=== PATIENT | female | born 1995 | race Caucasian/White ===

== ENCOUNTER 2020-06-01 15:45 | Emergency (ER) | payer OTHER, SELFPAY ==
[2020-06-01 15:56] VITALS: BP 118/71; PULSE 125; RESP 20; TEMP 36.4; O2SAT 100
[2020-06-01 17:01] LABS: Alanine Aminotransferase 13 U/L (4-35); Albumin Level 4.7 g/dL (3.5-5.1); Alkaline Phosphatase 45 U/L (38-126); Anion Gap 9 mmol/L (8-16); Aspartate Amino Transferase 20 U/L (14-36); Bilirubin,Total 0.6 mg/dL (0.2-1.3); Blood Urea Nitrogen 9 mg/dL (7-17); Calcium 9.3 mg/dL (8.4-10.2); Carbon Dioxide 26 mmol/L (22-30); Chloride 104 mmol/L (98-107); Estimated CRCL calculation 89 ml/min; Estimated Glomerular Filt Rate > 60; Glucose 89 mg/dL (65-105); Potassium 3.7 mmol/L (3.4-5.0); Sodium 139 mmol/L (137-145)
[2020-06-01] MEDS: SODIUM CHLORIDE 0.9% IV 1,000 ML 999 ML IV CONT (17:08)
[2020-06-01 17:21] VITALS: BP 119/69; PULSE 75; RESP 20; O2SAT 100
[2020-06-01 18:06] LABS: Basophils Absolute Auto 0.1 K/mm3 (0.0-0.1); Basophils Percent Auto 0.5 % (0.2-1.2); Eosinophils Absolute Auto 0.2 K/mm3 (0-0.3); Eosinophils Percent Auto 1.6 % (0-4.4); Hemoglobin 12.4 g/dL (12.0-15.0); Immature Granulocyte Absolute 0.03 K/mm3 (0.00-0.031); Immature Granulocyte Percent A 0.3 % (0-0.5); Lymphocytes Absolute Auto 1.49 K/mm3 (0.9-3.2); Lymphocytes Percent Auto 13.6 % (18.3-44.2); Mean Corpuscular HGB Conc 33.5 g/dl (32-36); Mean Corpuscular Hemoglobin 28.9 pg (26-34); Mean Corpuscular Volume 86.2 fl (80-100); Mean Platelet Volume 9.8 fl (7.4-10.4); Monocytes Absolute Auto 0.8 K/mm3 (0.1-0.6); Monocytes Percent Auto 7.5 % (2.6-8.5); Neutrophils Absolute Auto 8.4 K/mm3 (1.3-6.7); Neutrophils Percent Auto 76.5 % (45.5-73.1); Platelet Count Result 392 k/mm3 (150-375); Red Blood Count 4.29 M/mm3 (4.2-5.4); Red Cell Distribution Width 12.3 % (11.5-14.5)
--- NOTE | 2020-06-01 18:15 | ED.FEMALEGU ---
HPI - Female Genitourinary General Chief complaint: Vaginal Bleeding Stated complaint: vaginal bleeding Time Seen by Provider: 06/01/20 15:55 Source: patient, family and RN notes reviewed Mode of arrival: ambulatory Limitations: no limitations History of Present Illness HPI Narrative: Patient is 24 years old white female presents with vaginal bleeding started 1 month ago got worse today. Patient status post vaginal delivery 3 months ago. Patient denies any nausea, vomiting, diarrhea, constipation, abdominal pain. Related Data Home Medications Medication Instructions Recorded Confirmed levetiracetam PO 06/01/20 Allergies Allergy/AdvReac Type Severity Reaction Status Date / Time No Known Allergies Allergy Verified 06/01/20 16:04 Review of Systems Review of Systems: Narrative: CONSTITUTIONAL: Denies fever, chills, or sweats. EYES: Denies visual changes, redness, or discharge. ENT: Denies rhinorrhea, congestion, sore throat, or otalgia. CARDIOVASCULAR: Denies chest pain, palpitations, or edema. RESPIRATORY: Denies cough or dyspnea. GASTROINTESTINAL: Denies abdominal pain, nausea, vomiting, or diarrhea. GENITOURINARY: Denies dysuria or hematuria. SKIN: Denies rash or itching. MUSCULOSKELETAL: Denies back pain, joint pain, or myalgia. NEUROLOGIC: Denies headache, numbness, or weakness. PSYCHIATRIC: Denies anxiety or depression. PMFSH Social History Social History Gender identity (if verbalized by the patient): Female Exam Narrative: Exam Narrative: General appearance: Well-developed, well-nourished Skin: Normal color Head: Normocephalic, nontraumatic Eyes: Clear conjunctiva ENT: Oropharynx normal, ears normal, nose normal Neck: Supple, nontender Chest and respiratory: Airway patent, no respiratory distress, no accessory muscle use Heart: Regular rate/rhythm Abdomen: Soft, nontender, no organomegaly, quiet bowel sounds Vascular: Normal peripheral pulses, normal capillary refill. Musculoskeletal: Normal range of motion, nontender back Neurologic: Alert and oriented ?3, PUPPET MASTER is normal as tested, no gross motor deficit : External Female Exam: normal external appearance Speculum Exam - Vagina: vaginal bleeding (1.5 long Q-tip wERE enough to dry the whole vaginal pouch, n) Speculum Exam - Cervix: Cervical os open Bimanual exam- vagina & uterus: normal bimanual exam Bimanual Exam- Adnexa, other: normal adnexae Course Course Emergency Course: Stable Vital Signs Vital signs: Vital Signs Temperature 36.4 C 06/01/20 15:56 Pulse Rate 125 H 06/01/20 15:56 Respiratory Rate 20 06/01/20 15:56 Blood Pressure 118/71 06/01/20 15:56 Pulse Oximetry 100 06/01/20 15:56 Temperature 36.4 C 06/01/20 15:56 Pulse Rate 75 06/01/20 17:21 Respiratory Rate 20 06/01/20 17:21 Blood Pressure 119/69 06/01/20 17:21 Pulse Oximetry 100 06/01/20 17:21 MDM - Female Genitourinary MDM Narrative Medical decision making narrative: Vaginal breathing is status post vaginal delivery 3 months ago l. Miscarriage, dysfunctional uterine bleeding is my concern. Labs, orthostatic blood pressure ordered further plan to follow Differential Diagnosis Differential diagnosis: Likely other (, miscarriage, dysfunctional uterine bleeding) Lab Data Result diagrams: 06/01/20 16:43 06/01/20 16:43 Labs: Lab Results 06/01/20 06/01/20 Range/Units 16:43 16:43 WBC 11.0 H (4.5-10.0) K/mm3 RBC 4.29 (4.2-5.4) M/mm3 Hgb 12.4 (12.0-15.0) g/dL Hct 37.0 (37.0-47.0) % MCV 86.2 (80-100) fl MCH 28.9 (26-34) pg MCHC 33.5 (32-36) g/d
[2020-06-01 18:25] VITALS: BP 113/71; PULSE 71; RESP 23; O2SAT 100
[2020-06-01 18:27] VITALS: BP 109/69; BP 119/68; PULSE 74; PULSE 96
[2020-06-01 18:29] VITALS: BP 101/66; PULSE 91
== END 2020-06-01 18:50 | disposition home or self-care (01) ==
PROVIDERS: Emergency Provider Emergency Medicine; PCP Internal Medicine
DX: N93.8 Other specified abnormal uterine and vaginal bleeding (principal)
CPT/HCPCS: 36415; 80053; 81025; 85025; 96360; 99284; J7030

== ENCOUNTER 2024-05-25 00:33 | Day surgery (SDC) | payer OTHER, SELFPAY ==
--- NOTE | 2024-05-24 07:51 | P.HP_ITS ---
H&P: HPI History of Present Illness Date/Time: 05/24/24 07:51 Chief Complaint: 1st trimester missed A/B Narrative: 28-year-old female with incomplete AB admitted for suction D&C risks reviewed abnormal proved by imaging Review of Systems Review of Systems: CONSTITUTIONAL: Denies fever, chills, or sweats. EYES: Denies visual changes, redness, or discharge. ENT: Denies rhinorrhea, congestion, sore throat, or otalgia. CARDIOVASCULAR: Denies chest pain, palpitations, or edema. RESPIRATORY: Denies cough or dyspnea. GASTROINTESTINAL: Denies abdominal pain, nausea, vomiting, or diarrhea. GENITOURINARY: Denies dysuria or hematuria. SKIN: Denies rash or itching. MUSCULOSKELETAL: Denies back pain, joint pain, or myalgia. NEUROLOGIC: Denies headache, numbness, or weakness. PSYCHIATRIC: Denies anxiety or depression. [facility] Social History Social History Gender identity (if verbalized by the patient): Female Meds Home Medications and Allergies Home Medications ?Medication ?Instructions ?Recorded ?Confirmed ?Type levetiracetam 500 mg tablet PO 06/01/20 History Allergies Allergy/AdvReac Type Severity Reaction Status Date / Time No Known Allergies Allergy Verified 06/01/20 16:04 Exam Const: General: cooperative, healthy appearing and comfortable Nutritional Appearance: average body habitus Orientation/consciousness: oriented to person, oriented to place and oriented to time HENMT: Head: normal to inspection Resp: Effort & Inspection: normal respiratory effort Cardio: Rate: regular rate Rhythm: regular rhythm Heart sounds: S1 normal heart sound present and S2 normal heart sound present GI: Inspection: normal to inspection Auscultation: normal bowel sounds : External Female Exam: normal external appearance Speculum Exam - Vagina: normal appearance of the vagina and vaginal bleeding Speculum Exam - Cervix: normal appearance of the cervix Bimanual exam- vagina & uterus: enlarged Bimanual Exam- Adnexa, other: normal adnexae Assessment and Plan Assessment and plan (1) Incomplete : Code(s): O03.4 - Incomplete spontaneous without complication Status: Acute Plan Proceed with suction dilatation curettage
[2024-05-24 09:19] VITALS: BMI 23.4
--- NOTE | 2024-05-24 09:27 | PC.NURSE ---
Report to the Outpatient Waiting Room, entrance under the green pavilion located off [facility], at time __12:00pm on date __05/25/24 . Planned Procedure Time: _2:00pm .? Time changes happen often and if your time is changed the preop area will call you the afternoon before. - You and your visitor will be asked to self-screen and do not enter if you have any COVID symptoms. Please call surgeon if you need to reschedule. - A mask is optional within the hospital at this time. Patients may have clear liquids (water, carbonated beverages, clear teas, apple juice) until 3 hours prior to surgery with a maximum of 20 ounces. - No food from midnight until time of surgery and no smoking, or chewing tobacco (or any form of nicotine). No chewing gum, candy or mints. (11:00am) Take only the following medications with a SIP of water on the morning of surgery: ____Levetricetam DO NOT STOP ANY OF YOUR OTHER PRESCRIPTION MEDICATIONS PRIOR TO SURGERY EXCEPT THE FOLLOWING Hold all vitamins and supplements for 3 days per anesthesiologist. Medications to discontinue per physician None Date to take last dose___None Please no make-up, nail tajik, hairspray, perfume, deodorant, or body powder the day of surgery.? No jewelry (including any body piercings) or valuables the day of surgery, leave them at home.? Please take a shower or bath the night before, or the morning of, surgery with an antibacterial soap.? Wear comfortable, loose fitting clothing.? - Jewelry must be removed prior to entering the operating room.? Rings and piercings that are not removed may be cut off. - The hospital will not accept responsibility for valuables.? - Please leave all valuables, including medications, at home the day of surgery. If you are going home after surgery, a licensed wagon driver must drive you home.? - NO public transportation without another adult if you receive anesthesia. - We recommend that an adult stay with you for 24 hours following discharge. - We also recommend that you do not drive, make important decision, drink alcoholic beverages, or take any drugs that were not prescribed by your health care provider for at least 24 hours after your discharge time. Follow any additional instructions given to you from your surgeon. Telephone instructions given to __Patient and asked if any additional questions and then verbalized understanding. Patient advised to call surgeon office or pre surgery nurse liaison [phone] if any additional questions.
--- OUTSIDE RECORDS SUMMARY | 2024-05-25 00:35 | XMS_ITS | Clinical Summary ---
Author Organization [facility] Address [address] [place] [address] Care Team Providers Care Water Resource Manager Name Role Phone Ginny Pedro SANDWICH AND DRINK CART OPERATOR Primary Care Provider Mason labjoya Allergies No known active allergies Medications levETIRAcetam 500 MG tablet Take 500 mg by mouth 2 (two) times daily. 11 07/31/2018 Active vitamin 27-1 MG Tab tablet Take 1 tablet by mouth daily. Active Active Problems Problem Noted Date Diagnosed Date Vaginal delivery ([facility]) 02/27/2020 Personal history of seizure disorder 02/27/2020 Uses marijuana 02/27/2020 ([facility]) 02/26/2020 Immunizations Name Administration Dates Next Due Fluzone 6 Months+ Quad (0.5 mL Prefilled Syringe ) 02/28/2020 Tdap (Adacel) 02/28/2020 Family History Medical History Relation Comments Autism Brother 1 None Brother 2 None Father None Half-brother 1 None Half-brother 2 Asthma Mother COPD Mother Relation Status Comments Brother 1 Brother 2 Alive Father Alive Half-brother 1 Alive Half-brother 2 Alive Mother Alive Social History Tobacco Use Types Packs/Day Years Used Date Smoking Tobacco: Never Smokeless Tobacco: Never Alcohol Use Standard Drinks/Week Comments Not Currently 0 (1 standard drink = 0.6 oz pur e alcohol) Comments No Sex and Gender Information Value Date Recorded Sex Assigned at Not on file Legal Sex Female 7:34 PM CDT Gender Identity Not on file Sexual Orientation Not on file Last Filed Vital Signs Vital Sign Reading Time Taken Comments Blood Pressure 137/86 02/28/2020 8:00 AM SHIFT SUPERVISOR Pulse 90 02/28/2020 8:00 AM SHIFT SUPERVISOR Temperature 36.7 C (98 F) 02/28/2020 8:00 AM SHIFT SUPERVISOR Respiratory Rate 20 02/28/2020 8:00 AM SHIFT SUPERVISOR Oxygen Saturation 97% 02/28/2020 8:00 AM SHIFT SUPERVISOR Inhaled Oxygen Concentration - - Weight 78.5 kg (173 lb) 02/26/2020 11:29 PM SHIFT SUPERVISOR Height 163.8 cm (5' 4.5 ) 02/26/2020 11:29 PM CS T Body Mass Index 29.24 02/26/2020 11:29 PM SHIFT SUPERVISOR Plan of Treatment Health Maintenance Due Date Last Done Comments Cervical Cancer Screening Pap Smear (Age 21 to 29) Every 3 Years 1996 Cervical Cancer Screening 1996 Annual Physical 12/06/1999 Hepatitis C 2014 Hepatitis B Vaccines (1 of 3 - 19+ 3-dose series) 12/06/2015 COVID-19 Vaccine ( season) 2023 Influenza Adult (#1) 2023 02/28/2020, 01/07/2017, 01/16/2015, Additional history exists DTaP, Tdap and Td Vaccines (6 - Td or Tdap) 02/27/2030 02/28/2020, 12/19/2001, 03/29/2000, Additional history exists Meningococcal Vaccine Completed 12/17/2014 HPV Vaccines Aged Out No longer eligi ble based on patient's age to complete this topic Meningococcal B Vaccine Aged Out No l onger eligible based on patient's age to complete this topic Pneumococcal Vaccine: Pediatrics (0 to 5 Years) and At-Risk Patients (6 to 64 Years) Aged Out No longer eligible based on patient's age to complete this topic RSV Immunizations Under 20 Months Aged Out No longer eligible based on patient's age to complete this topic Insurance Advance Directives * Full Code (Latest Code Status on File) Date Activated Date Inactivated Comments 02/26/2020 11:44 PM 02/28/2020 3:51 PM Care Teams Water Resource Manager Relationship Specialty Start Date End Date Ginny Pedro, SANDWICH AND DRINK CART OPERATOR PCP - General NURSE PRACTITIONER 08/19/18
--- OUTSIDE RECORDS SUMMARY | 2024-05-25 00:36 | XMS_ITS | Clinical Summary ---
Author Organization [facility] Address [facility] [address] [place] [address] Care Team Providers Care Base Manager Name Role Phone Lorene Vergara DO Unavailable [phone] Krzysztof Garcia CUPOLA OPERATOR INSULATION Primary Care Provide r Allergies No known active allergies Medications escitalopram (LEXAPRO) 10 mg tablet TAKE ONE TABLET BY MOUTH ONCE DAILY FOR 14 DAYS THEN INCREASE TO TWO TABLETS DAILY. 1 Active BIOTIN ORAL Take by mouth Acti ve lamoTRIgine (LaMICtal) 25 mg tablet Take 1 tablet (25 mg total) by mouth 2 (two) times a day for 14 days, THEN 2 tablets (50 mg total) 2 (two) times a day. 388 tablet 4 Active lamoTRIgine (LaMICtal) 25 mg tablet Take 2 tablets (50 mg total) by mouth 2 (two) times a day 360 tablet 3 5 03/21/19 26 Active levETIRAcetam (KEPPRA) 500 mg tabletIndication s:Nonintractable epilepsy without status epilepticus, unspecified epilepsy type (HCC) Take 1 tablet (500 mg total) by mouth 2 (two) times a day 180 tablet 1 4 08/22/19 25 Active Active Problems Problem Noted Date Diagnosed Date Nonintractable generalized i diopathic epilepsy without status epilepticus 11/20/2019 Assessment & Plan (11/19/2020 10:57 AM CDT): Patient continues on levetiracetam 500 mg b.i.d. at this time with good tolerability and no seizures reported over the past year. I have renewed her levetiracetam is presently prescribed. Teratogenicity with levetiracetam was discussed and I have advised patient to resume an guwl-frn-[id number] multivitamin with folic acid supplement. She will follow-up in neurology clinic in a year. Assessment & Plan (11/20/2019 10:28 AM CDT): Patient has history of primary generalized seizures for which she remains on levetiracetam 500 mg b.i.d.. She has no tolerability issues with medication has had no seizures over the past year. I have reviewed teratogenicity with her at this time. She is in the midst of her 1st to station of and is on a multivitamin with folic acid supplementation. I would recommend her continuing her present levetiracetam dosing. I have renewed her levetiracetam 500 mg b.i.d. for the upcoming year. I will see her back in the office in 1 year. Surgical History Surgery Date Site/Laterality Comments NO PAST SURGERIES Medical History Medical History Date Comments Seizures (HCC) Family History Medical History Relation Name Comments Autism Brother 1 Seizures Brother 1 PTSD Brother 2 No Known Problems Father Asthma Mother COPD Mother Emphysema Mother Relation Name Status Comments Brother 1 Brother 2 Alive Father Alive Mother Alive Social History Tobacco Use Types Packs/Day Years Used Date Smoking Tobacco: Never Smokeless Tobacco: Never Personal Safety Answer Date Recorded Getting School Help Needed Not on file 05/07 Comments Unknown Sex and Gender Information Value Date Recorded Sex Assigned at Not on file Legal Sex Female 7:09 PM BODILY INJURY ADJUSTER Gender Identity Not on file Sexual Orientation Not on file Obstetrics History Last Filed Vital Signs Vital Sign Reading Time Taken Comments Blood Pressure 100/70 2023 8:30 AM CDT Pulse 98 2023 8:30 AM CDT Temperature 37.1 C (98.7 F) 12/14/2021 8:09 AM CDT Respiratory Rate 20 2023 8:30 AM CDT Oxygen Saturation 100% 2023 8:30 AM CDT Inhaled Oxygen Concentration - - Weight 63 kg (139 lb) 2023 8:30 AM CDT Height 160 cm (5' 3 ) 2023 8:30 AM CDT Body Mass Index 24.62 2023 8:30 AM CDT Plan of Treatment Health Maintenance Due Date Last Done Comments Cervical Cancer Screening 1996 Depression Screening 1996 Hepatitis C Screening 1996 Varicella Vaccines (2 of 2 - 2-dose childhood series) 2000 03/29/2000 Regular Well Visit/Exam 18-64 2014 Influenza Vaccine (#1) 2023 0, 11/27/2018, 01/07/2017, Additional history exists DTaP/Tdap/Td Vaccine (6 - Td or Tdap) 02/27/2030 02/28/2020, 12/19/2001, 03/29/2000, Additional history exists Hepatitis B Screening Completed 03/29/2000 , 05/13/1997, 1996 HPV Vaccines Aged Out No longer eligi ble based on patient's age to complete this topic Pneumococcal vaccine <65 Aged Out No longer eligible based on patient's age to complete this topic Insurance [facility] Care Teams Base Manager Relationship Specialty Start [place] [address] [place] [address] PCP - General Family Practice 11/20/19 Lorene Vergara DO Gynecologic Oncology 07/31/19
--- OUTSIDE RECORDS SUMMARY | 2024-05-25 00:36 | XMS_ITS | Referral Summary ---
Author Organization [facility] Address [facility] [place] [address] Care Team Providers Care Salesperson Wigs Name Role Phone Lorene Vergara DO Unavailable [phone] Krzysztof Garcia PRECISION FARMING SPECIALIST Primary Care Provide r Allergies No known [...] I have advised patient to resume an ufrx-hvt-[id number] multivitamin with folic acid supplement. She will [...] back in the office in 1 year. Social History Tobacco Use Types Packs/Day Years Used Date Smoking Tobacco: Never Smokeless Tobacco: Never Personal Safety Answer Date Recorded Getting School Help Needed Not on file 05/07 Comments Unknown Sex and Gender Information Value Date Recorded Sex Assigned at Not on file Legal Sex Female 7:09 PM PRECIPITATION EQUIPMENT TENDER Gender Identity Not on file Sexual Orientation [...] 2023 8:30 AM CDT Plan of Treatment Not on file Insurance [facility] Care Teams Salesperson Wigs Relationship Specialty Start [place] [address] [place] [address] PCP - General Family Practice 11/20/19 Lorene Vergara DO Gynecologic Oncology 07/31/19
--- NOTE | 2024-05-25 06:12 | WPDHPUPDATE1 ---
History and Physical Update Update Date/Time: 05/25/24 06:12 History and Physical has been reviewed, including an updated exam of the patient. There are NO changes in the patient's condition. Risks, benefits, and alternatives have been discussed and questions answered. Patient agrees to proceed with procedure.
[2024-05-25 12:25] VITALS: BP 124/66; PULSE 84; RESP 16; TEMP 36.8; O2SAT 100
[2024-05-25] MEDS: LACTATED RINGERS 1,000 ML 30 ML IV CONT (12:55)
[2024-05-25] MEDS: ACETAMINOPHEN 500 MG TABLET 1000 MG PO (13:00)
[2024-05-25 13:03] LABS: Hematocrit 38.8 % (37.0-47.0); Hemoglobin 13.4 g/dL (12.0-15.0)
--- NOTE | 2024-05-25 13:35 | WPDANESEPPF ---
Anes - Initial Pre Proc Eval Procedure: Operation Date: 05/25/24 14:00 Proposed Procedures p Suction Dilatation and Curettage - Quan Coughlin MD Date/Time: 05/25/24 13:35 Surgeon: Quan Coughlin MD Pre Op Diagnosis: missed AB Patient Data Age: 28 Gender: F Height: 1.6 m Weight: 59.7 kg Last Vital Signs Temp 36.8 C 05/25/24 12:25 Pulse 84 05/25/24 12:25 Resp 16 05/25/24 12:25 BP 124/66 05/25/24 12:25 Pulse Ox 100 05/25/24 12:25 O2 Del Method Room Air 05/25/24 12:25 Allergies Allergy/AdvReac Type Severity Reaction Status Date / Time No Known Allergies Allergy Verified 05/25/24 12:27 Home Medications ?Medication ?Instructions ?Recorded ?Confirmed ?Type levetiracetam 500 mg tablet 500 mg PO Q12H 06/01/20 05/25/24 History hydrocodone 5 mg-acetaminophen 325 1 tablet PO Q4H PRN pain #20 tabs 05/25/24 Rx mg tablet Laboratory Tests 05/25/24 12:58 Hgb 13.4 g/dL (12.0-15.0) Hct 38.8 % (37.0-47.0) Blood Type A Positive Antibody Screen Pending Screen Not Reportable Baby's Blood Type Not Reportable Baby's CONCEPCIÓN Not Reportable Doses of RhIg Required 0 Patient hx anesthesia problems: none Family hx anesthesia problems: none Results Review: All pre-operative results and documents have been reviewed as part of the pre-operative evaluation. [facility] Social History Social History Smoking status: Never smoker Alcohol intake: never Substance use: current Substance use type: marijuana Other substance usage details: smoke daily Living arrangements: with family Additional living arrangements comments: Fiance and child Gender identity (if verbalized by the patient): Female Spiritual care concerns: No Anes - Eval Final PreProcedure Day of Procedure 05/25/24 13:35 Patient weight: normal Heart: regular rate and rhythm Lungs: clear to auscultation Airway: Mallampati scale class II Neurological: alert and oriented Last oral intake: >/= 8 hours ASA classification: II Emergent: no Anesthetic plan: proceed Anesthesia type and monitoring: general GIVS and standard monitoring Results Review: All pre-operative results and documents have been reviewed as part of the pre-operative evaluation. Informed Consent: The patient's anesthetic plan and its attendant risks and benefits were discussed with the patient/family/POA. Questions were solicited and answers provided to the satisfaction of the patient/family/POA.
[2024-05-25] MEDS: LIDOCAINE 1% LOCAL INJ 10 ML VIAL INFILTRATE (14:19)
--- NOTE | 2024-05-25 14:25 | W.PM.PROC2 ---
Procedure Note - Detailed Date of Procedure 05/25/24 Pre-op Diagnosis missed AB Post-op Diagnosis Same Procedure Performed Suction dilatation and curettage Surgeon Quan Coughlin MD Anesthesia MAC and Local Indications 28-year-old 1 para 0 with first-trimester missed A/B Findings Uterus sounds to 8cm. Tissue consistent with products of conception Description of Procedure Patient was prepped draped in the normal sterile fashion placed in the dorsal lithotomy position. Under excellent IV sedation weighted speculum placed in posterior fornix vagina. Anterior lip of the cervix grasped with single-tooth tenaculum. 2.5cc 1% xylocaine anesthesia placed at 2, 4, 8, 10:00 a.m. of the cervix. Uterus sounded 8cm. Serial dilatation with fragmented dilators performed followed by passage of the 8. A suction curette. A small amount of tissue could be removed. When a good grating sound was heard the instruments withdrawn patient went to recovery in satisfactory condition. All sponge, needle, instrument counts were correct. There were no complications Estimated Blood Loss 25 Drains No Packing No Pathology Yes Complications No immediate complications
[2024-05-25 14:26] VITALS: BP 109/62; PULSE 70; RESP 14; O2SAT 100
[2024-05-25 14:56] VITALS: BP 95/50; PULSE 56; RESP 16
[2024-05-25 15:20] VITALS: BP 105/66; PULSE 57; RESP 16
== END 2024-05-25 15:24 | disposition home or self-care (01) ==
PROVIDERS: Visit Provider Obstetrics & Gynecology
PROC: (CPT 59820; principal; 2024-05-25 14:00)
DX: O02.1 Missed abortion (principal); F12.90 Cannabis use, unspecified, uncomplicated
CPT/HCPCS: 59820; 36415; 85014; 85018; 85461; 86850; 86900; 86901; 88305; A9270; J2003; J2250; J2704; J3010; J7120